=== PATIENT | male | born 1995 | race Two or more races ===

== ENCOUNTER 2024-03-08 08:28 | Emergency (ER) | payer OTHER ==
[~2024-03-08] VITALS: Ht 162.6 cm; Wt 83.9 kg
[2024-03-08] MEDS ORDERED: CEFTRIAXONE SODIUM 1,000 MG VIAL IM STA (08:59)
[2024-03-08] MEDS ORDERED: IBUprofen 100 MG/5 ML-120ML ML PO STA (08:59)
[2024-03-08] MEDS ORDERED: IBUprofen 20 MG/ML BLIST.PACK (5ML) PO ONE (09:08)
[2024-03-08] MEDS ORDERED: CEFTRIAXONE SODIUM 1,000 MG VIAL ONE (09:08)
== END 2024-03-08 09:37 | disposition home or self-care (01) ==
LOC: ER 08:29
DX: J03.80 Acute tonsillitis due to other specified organisms (principal); B96.89 Other specified bacterial agents as the cause of diseases classified elsewhere

== ENCOUNTER 2024-06-24 11:53 | Emergency (ER) | payer OTHER ==
[~2024-06-24] VITALS: Ht 162.6 cm; Wt 86.2 kg
[2024-06-24] MEDS ORDERED: KETOROLAC TROMETHAMINE 60 MG VIAL IM ONE (13:30)
== END 2024-06-24 13:32 | disposition home or self-care (01) ==
LOC: ER 11:55
DX: M94.0 Chondrocostal junction syndrome [Tietze] (principal)
CPT/HCPCS: 96372; 99282; J1885